=== PATIENT | male | born 1990 | race Caucasian/White ===

== ENCOUNTER → 2020-01-04 | Emergency (ER) | payer MEDICAID, OTHER ==
[~2020-01-04] VITALS: Ht 185.4 cm; Wt 86.2 kg
[2020-01-04 18:29] VITALS: BP 138/88
== END | disposition left against medical advice (07) ==
LOC: ER 18:20
DX: M79.604 Pain in right leg (principal); Z53.21 Procedure and treatment not carried out due to patient leaving prior to being seen by health care provider